=== PATIENT | male | born 1950 | race Caucasian/White ===

== ENCOUNTER 2023-09-23 14:00 | Outpatient (CLI) | payer MEDICARE, BC, SELFPAY | END 2023-09-23 14:01 | disposition home or self-care (01) | LOC: SLEEP 09-24 09:19 | PROVIDERS: PCP Electrodiagnostic Medicine; Visit Provider Electrodiagnostic Medicine | DX: G47.33 Obstructive sleep apnea (adult) (pediatric) (principal) | CPT/HCPCS: G0399 ==

== ENCOUNTER → 2023-11-06 08:22 | Outpatient (BNVA) | payer MEDICARE, BC, SELFPAY | PROVIDERS: PCP Electrodiagnostic Medicine; Referring Provider Electrodiagnostic Medicine; Visit Provider Internal Medicine | DX: E03.9 Hypothyroidism, unspecified (principal); E04.2 Nontoxic multinodular goiter | CPT/HCPCS: 99204 ==

== ENCOUNTER 2023-11-13 09:21 | Outpatient (CLI) | payer MEDICARE, BC, SELFPAY ==
[2023-11-13 10:22] LABS: Free T4 Free Thyroxine 1.13 ng/dL (0.82-1.77)
[2023-11-17 13:14] LABS: Thyroglobulin AB <1 IU/mL (< or = 1); Thyroid Peroxidase Antobodies <1 IU/mL (<9)
[2023-11-20 03:33] LABS: TSH Receptor Binding Antibody <1.00 IU/L (< OR = 2.00)
== END 2023-11-13 09:22 | disposition home or self-care (01) ==
LOC: LAB 09:22
PROVIDERS: PCP Electrodiagnostic Medicine; Visit Provider Internal Medicine
DX: E03.9 Hypothyroidism, unspecified (principal); E04.2 Nontoxic multinodular goiter
CPT/HCPCS: 36415; 83516; 84439; 84443; 86376; 86800

== ENCOUNTER 2023-12-25 14:24 | Outpatient (CLI) | payer MEDICARE, BC, SELFPAY ==
[2023-12-25 15:20] LABS: Free T4 Free Thyroxine 0.93 ng/dL (0.82-1.77); Thyroid Stimulating Hormone 1.54 uIU/mL (0.27-4.20)
== END 2023-12-25 14:25 | disposition home or self-care (01) ==
LOC: LAB 14:25
PROVIDERS: PCP Electrodiagnostic Medicine; Visit Provider Internal Medicine
DX: E03.9 Hypothyroidism, unspecified (principal); E04.2 Nontoxic multinodular goiter
CPT/HCPCS: 36415; 84439; 84443

== ENCOUNTER → 2024-01-02 08:09 | Outpatient (BNVA) | payer MEDICARE, BC, SELFPAY | PROVIDERS: PCP Electrodiagnostic Medicine; Visit Provider Internal Medicine | DX: E03.9 Hypothyroidism, unspecified (principal); E04.2 Nontoxic multinodular goiter; R03.0 Elevated blood-pressure reading, without diagnosis of hypertension | CPT/HCPCS: 99214 ==

== ENCOUNTER 2024-08-31 11:06 | Outpatient (CLI) | payer MEDICARE, BC, SELFPAY ==
--- NOTE | 2024-08-31 11:15 | US_ITS ---
WS: [id number] THYROID ULTRASOUND HISTORY: multinodular goiter COMPARISON: 09/08/2023 Right lobe: 5.0 cm x 4.2 cm x 7.2 cm (w x ap x l). Volume: 71.8 cm3. Markedly enlarged heterogeneous RIGHT lobe. There are numerous small cystic areas throughout the gland. There is no hypocholic dominant nodule or suspicious nodule or microcalcification. Left lobe: 1.4 cm x 2.2 cm x 5.5 cm (w x ap x l). Volume: 7.8 cm3. Slightly enlarged gland with a hypoechoic nodule in the mid gland measuring 1.1 x 0.6 x 1.5 cm. No echogenic foci. This nodule was noted on the prior study with minimal change. There is an additional colloid cyst in the lower pole measuring 0.7 x 0.6 x 0.8 cm. Isthmus: 0.4 cm. US/US thyroid [id number] IMPRESSION: 1. Markedly enlarged heterogeneous RIGHT thyroid similar to the prior study. M ost consistent with a multinodular goiter. 2. Stable LEFT thyroid nodules. 3. Yearly thyroid ultrasound evaluation can be obtained.
== END 2024-08-31 11:07 | disposition home or self-care (01) ==
PROVIDERS: PCP Electrodiagnostic Medicine; Visit Provider Internal Medicine
DX: E04.2 Nontoxic multinodular goiter (principal)
CPT/HCPCS: 76536